=== PATIENT | male | born 1940 ===

== ENCOUNTER 2025-09-10 14:36 | Outpatient (AMB) | payer OTHER, SELFPAY ==
[2025-09-10 14:39] VITALS: BMI 21.0
--- NOTE | 2025-09-10 14:39 | A.PHYSOV ---
Vital Signs 09/10/25 14:39 Height 5 ft 9 in Weight 142 lb BMI 21.0 Intake Visit Reasons: NPV [facility] Ref- Right hip Intake Note: Patient is a 85 year old male in office as new patient for right hip pain. 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 About three or four years ago, he developed bursitis in his hip. The patient has dementia, which makes his reporting of pain inconsistent; however, his daughter notes that he has difficulty walking, which she associates with his pain. Patient has experienced hip bursitis in the past that responded very well to hip bursal injection. The patient's past medical history is significant for occasional dizziness, as noted in his chart. He is not diabetic. He sometimes uses Tylenol for pain, and there is no known issue with his liver or kidney function. I reviewed the referring provider's no prior to consultation. Pain Description - Onset: The patient's hip bursitis started about three to four years ago. - Location: The pain is located on the outside of his hip. - Character: The patient's self-report of pain is variable due to dementia. - Associated Symptoms: He experiences difficulty with walking. - Negative: He denies groin pain. [facility] Social History Alcohol intake: current Alcohol intake frequency: does not drink Patient Tobacco Use Status: Never used Tobacco Use of substances other than those prescribed or required for medical reasons: No Current occupational status: retired Review of Systems Narrative Review of Systems - Musculoskeletal: Reports pain on the outside of the hip and difficulty walking. - Neurological: Acknowledges having dementia and gives inconsistent reports of pain. - He has a history of occasional dizziness. Physical Exam Exam Exam: Physical Exam - General: The patient is accompanied by his daughter. - Musculoskeletal: Examination of the hip reveals good range of motion. - Palpation elicits pain on the outer aspect of the right hip to palpation - There is no groin pain on palpation. - Skin: A skin tag or nevus was noted at the right buttock Vital Signs: BMI result Body Mass Index 21.0 Office Procedures AMB Hip Injection AMB Hip Injection Procedure Details: Right Greater trochanteric bursal injection: The risks, benefits and complications of the right greater trochanteric bursitis/gluteal tendinopathy were discussed with the patient, including but not limited to infection, increased serum glucose, nerve damage, bleeding and pain. All questions were answered to the patient's satisfaction. Verbal consent was obtained. The patient was eager to proceed. Patient was cleansed with Betadine, ethyl chloride was then used to desensitize the skin. Using an a 25-gauge needle 40 mg of Kenalog and 3 mL 2% lidocaine were injected over the greater trochanter of maximal tenderness. The patient tolerated the procedure well without immediate complication. Postinjection instructions were given. Hip (Bursa) Injection - : Right All charges added?: Procedure code (CPT) selection complete Office Meds Kenalog 40 mg/mL suspension for injection Performing Provider: GURDEEP Simental [facility] Administered by: GURDEEP Simental on 09/10/25 16:02 Dose Route Admin Location Dispensed Lot Number Expiration Date [facility] Manufacturing Process [employer] 40 mg intrabursal 1 mL [id number] [employer] Total Dispensed Waste 1 mL 0 % lidocaine (PF) 20 mg/mL (2 %) injection solution Performing Provider: GURDEEP Simental Performing Location: [facility] Administered by: GURDEEP Simental on 09/10/25 16:02 Dose Route Admin Location Dispensed Lot Number Expiration Date [facility] Manufacturing Process Engineer 60 mg intrabursal 50 mL [id number] Total Dispensed Waste 50 mL 0 % Assessment & Plan Assessment & Plan (1) Bursitis of right hip: Code(s): M70.71 - Other bursitis of hip, right hip Category: Medical Qualifiers: Hip bursitis location: trochanteric bursitis Qualified Code(s): M70.61 - Trochanteric bursitis, right hip Plan Pain Management - Analgesia: The patient sometimes uses Tylenol for pain relief. - Activities of Daily Living: The patient's pain interferes with his ability to walk. Plan Patient was informed and verbally consented to the use of an ambient scribe for clinic note documentation during this visit. 1. Hip Pain The patient presented with right outer hip pain, which is suspected to be bursitis. Physical exam revealed good hip motion, making significant intra-articular arthritis less likely. A cortisone injection was administered to the right hip bursa to decrease inflammation. If the injection is ineffective, further evaluation for other etiologies, such as a pinched nerve in the back, will be considered. The patient may return in three months for a repeat injection if needed. Discussion Notes I discussed with the patient and his daughter that his hip examination showed good motion, making significant hip arthritis less likely. I explained that his pain on the outside of the hip could be from bursitis, and we discussed the option of a cortisone injection to reduce inflammation. I reviewed the risks, including a small chance of infection, bleeding, or nerve damage, and clarified that the injection aims to decrease inflammation rather than cure the problem. Consent was obtained from both the patient and his daughter for the procedure. I advised them that if the injection does not help, he should return for re-evaluation as the pain could be from another source, like a pinched nerve in his back. I also explained that the injection can be repeated in three months if it proves effective. Regarding pain management, I advised that he can take Tylenol if his liver function is good and NSAIDs like Advil if his kidney function is normal. Patient Instructions - You received a cortisone shot in your right hip today to help with the pain and inflammation. - You may take Tylenol for pain, as long as your doctor has confirmed you have a healthy liver. - You may take anti-inflammatory medicine like Advil if your doctor has confirmed your kidneys are healthy. - If the shot does not help your pain, please return for a follow-up visit, as there might be another cause for your pain. - If the pain gets worse after the shot helps, you can schedule an appointment to get another one in about three months. Orders: Orders AMB Hip/Bursa Injection Today M70.61 - Trochanteric bursitis, right hip Coding Level of Care Code Tele New Pt Level 3 (56531) Diagnoses Trochanteric bursitis of right hip M70.61 Hip bursitis location: trochanteric bursitis CPT Codes AMB Hip Injection - Hip/Bursa Injection - : Right ([id number])
--- OUTSIDE RECORDS SUMMARY | 2025-09-10 20:31 | XMS_ITS | Clinical Summary ---
Author Organization [facility] Address [address] [facility] [address] [place] [address] Phone Care Team Providers Care Sawmill Tally Clerk Name Role Phone Gonzalez Cornell MD Primary Care Provider Allergies No known active allergies Medications simvastatin (ZOCOR) 20 MG tablet Take 1 tablet by mouth 06/03/2023 Active Memantine HCl ER 28 MG capsule sustained-relea se 24 hr Take 1 capsule by mouth 06/06/2023 Active donepezil (ARICEPT) 10 MG tablet Take 1 tablet by mouth 09/07/2022 Active aspirin (ST ANGELICA) 81 MG EC tablet Take 1 tablet by mouth 06/19/2020 Active cyanocobalamin (VITAMIN B-12) 1000 MCG tablet Take 1,000 mcg by mouth 1 (one) time each day Active Multiple Vitamin (multivitamin) tablet Take 1 tablet by mouth 1 (one) time each day Active Active Problems Problem Noted Date Diagnosed Date Patient care statuses 07/13/2023 07/13/2023 Stage 3b chronic kidney disease 07/13/2023 Carcinoma of prostate 07/13/2023 Anemia in chronic kidney disease 07/13/2023 Left lower quadrant pain 06/25/2019 023 Chronic low back pain 06/25/2019 07/13/2023 Immunizations Immunization Administration Dates Next Due Influenza, Unspecified 08/04/2022,2020,2020,08/24/2019 ,07/21/2018,08/01/2017 Pfizer SARS-COV-2 01/13/2022,08/14/2021,12/05/19 21,11/13/2020 Pneumococcal Conjugate 13-Valent 11/18/2017 Social History Tobacco Use Types Packs/Day Years Used Date Smoking Tobacco: Never Assessed Sex and Gender Information Value Date Recorded Sex Assigned at Not on file Legal Sex Male 11:07 AM EDT Gender Identity Not on file Sexual Orientation Not on file Last Filed Vital Signs Vital Sign Reading Time Taken Comments Blood Pressure 108/56 07/14/2023 11:23 AM EDT Pulse 90 07/14/2023 11:23 AM EDT Temperature - - Respiratory Rate - - Oxygen Saturation 98% 07/14/2023 11:23 AM EDT Inhaled Oxygen Concentration - - Weight 69.5 kg (153 lb 3.2 oz) 07/14/2023 11:23 AM EDT Height 177.8 cm (5' 10 ) 07/14/2023 11:23 AM EDT Body Mass Index 21.98 07/14/2023 11:23 AM EDT Plan of Treatment Health Maintenance Due Date Last Done Comments Pneumococcal Vaccine: 50+ Years (2 of 2 - PPSV23, PCV20, or PCV21) 01/13/2018 11/18/2017 Influenza Vaccine (#1) 2025 2, 09/14/2021, 2020, Additional history exists Hepatitis B Vaccine Aged Out No longe r eligible based on patient's age to complete this topic Insurance ([id number]) MCR ([id number]) GURDEEP RUIZ [id number] Care Teams Sawmill Tally Clerk Relationship Specialty Start Date End Date Gonzalez Cornell MD [address] PCP - General Internal Medicine 06/21/23
--- OUTSIDE RECORDS SUMMARY | 2025-09-10 20:31 | XMS_ITS | Clinical Summary ---
Author Organization [employer] Address [address] [place] [address] Care Team Providers Care Insurance Sales Agent Name Role Phone Unavailable Primary Care Provider Unavailabl e Social History Tobacco Use Types Packs/Day Years Used Date Smoking Tobacco: Never Assessed Sex and Gender Information Value Date Recorded Sex Assigned at Male 08/02/2022 10:38 AM EDT Legal Sex Male 10:38 AM EDT Gender Identity Male 08/02/2022 10:38 AM EDT Sexual Orientation Straight 08/02/2022 10 :38 AM EDT Plan of Treatment Health Maintenance Due Date Last Done Comments Depression Screening 1942 Lipid Panel 1942 Alcohol/Substance Use Screening 1954 Tobacco Screening 1954 DTaP/Tdap/Td Vaccines (1 - Tdap) 1961 Pneumococcal Vaccine: 50+ Ye ars (1 of 1 - PCV) 1992 Zoster Vaccines (1 of 2) 1992 RSV Patients and Pa tients Aged 60 years or older (1 - 1-dose 75+ series) 2017 COVID-19 Vaccine ( - 2024-2 6 season) 2025 Influenza Vaccine (#1) 2025 HIB Vaccines Aged Out No longer eligi ble based on patient's age to complete this topic HPV Vaccines Aged Out No longer eligi ble based on patient's age to complete this topic Hepatitis A Vaccines Aged Out No long er eligible based on patient's age to complete this topic Hepatitis B Vaccines Aged Out No long er eligible based on patient's age to complete this topic IPV Vaccines Aged Out No longer eligi ble based on patient's age to complete this topic Meningococcal B Vaccine Aged Out No l onger eligible based on patient's age to complete this topic Meningococcal Vaccine Aged Out No toi grace eligible based on patient's age to complete this topic RSV under 20 months Aged Out No longe r eligible based on patient's age to complete this topic Rotavirus Vaccines Aged Out No longer eligible based on patient's age to complete this topic
--- OUTSIDE RECORDS SUMMARY | 2025-09-10 20:31 | XMS_ITS | Encounter Summary ---
Author Organization [facility] Address [address] [facility] [address] [place] [address] Care Team Providers Care Electro Mechanic Name Role Phone Unavailable Primary Care Provider Unavailabl e Encounter Details Date Type Department Care Team (Latest Contact Info) Description 05/06/2021 Abstract [facility] CONVERSIONS Dental, Provider, DDS Social History Tobacco Use Types Packs/Day Years Used Date Smoking Tobacco: Never Assessed Sex and Gender Information Value Date Recorded Sex Assigned at Male 08/02/2022 10:38 AM EDT Legal Sex Male 10:38 AM EDT Gender Identity Male 08/02/2022 10:38 AM EDT Sexual Orientation Straight 08/02/2022 10 :38 AM EDT documented as of this encounter Plan of Treatment Not on file documented as of this encounter Visit Diagnoses Not on filedocumented in this encounter
== END 2025-09-10 15:00 | disposition home or self-care (01) ==
LOC: HO.HPHYS 14:36
PROVIDERS: PCP Internal Medicine; Visit Provider Physician Assistant
DX: M70.61 Trochanteric bursitis, right hip (principal)
CPT/HCPCS: 20610; 99203

== ENCOUNTER → 2025-09-10 14:36 | Outpatient (BNVA) | payer OTHER, SELFPAY | PROVIDERS: PCP Internal Medicine; Visit Provider Physician Assistant | DX: M70.61 Trochanteric bursitis, right hip (principal) | CPT/HCPCS: 20610; 99202; J2003; J3301 ==